=== PATIENT | male | born 2000 | race Two or more races ===

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

== ENCOUNTER 2021-02-01 17:48 | Emergency (ER) | payer MEDICAID, OTHER ==
[~2021-02-01] VITALS: Ht 177.8 cm; Wt 87.0 kg
[2021-02-01 17:49] VITALS: BP 156/90
[2021-02-01] MEDS ORDERED: ACETAMINOPHEN 325MG TABLET PO ONE (19:30)
== END 2021-02-01 21:48 | disposition home or self-care (01) ==
LOC: ER 17:48
DX: M25.521 Pain in right elbow (principal); Z98.890 Other specified postprocedural states; W22.8XXA Striking against or struck by other objects, initial encounter; Y93.89 Activity, other specified; Y92.89 Other specified places as the place of occurrence of the external cause; Y99.8 Other external cause status
CPT/HCPCS: 73080; 99283

== ENCOUNTER 2022-06-05 20:55 | Emergency (ER) | payer MEDICAID ==
[~2022-06-05] VITALS: Ht 175.3 cm; Wt 89.0 kg
[2022-06-06] MEDS ORDERED: IBUPROFEN 400MG TABLET PO ONE
[2022-06-06 00:53] VITALS: BP 134/79
[2022-06-06] MEDS ORDERED: IBUP-2028 MT (02:12)
[2022-06-06] MEDS ORDERED: ACET-2708 MT (02:13)
== END 2022-06-06 02:29 | disposition home or self-care (01) ==
LOC: ER 21:14
DX: S93.01XA Subluxation of right ankle joint, initial encounter (principal); W18.30XA Fall on same level, unspecified, initial encounter; Y93.89 Activity, other specified; Y92.89 Other specified places as the place of occurrence of the external cause; Y99.8 Other external cause status
CPT/HCPCS: 73630; 99283

== ENCOUNTER 2023-01-29 11:28 | Emergency (ER) | payer MEDICAID ==
[~2023-01-29] VITALS: Ht 175.3 cm; Wt 83.9 kg
[~2023-01-29 11:28] MED LIST: ACET-2708 MT; IBUP-2028 MT
[2023-01-29 11:46] VITALS: BP 148/74; PULSE 100; RESP 16; TEMP 98.6; O2SAT 97
[2023-01-29] MEDS ORDERED: BENZ100C86 MT (13:29)
[2023-01-29] MEDS ORDERED: CETI1TAB MT (13:29)
== END 2023-01-29 13:55 | disposition home or self-care (01) ==
LOC: ER 11:28
DX: J06.9 Acute upper respiratory infection, unspecified (principal)
CPT/HCPCS: 99283